=== PATIENT | female | born 1980 | race Caucasian/White ===

== ENCOUNTER → 2017-12-21 | Emergency (ER) | payer OTHER ==
[~2017-12-21] VITALS: Ht 157.5 cm; Wt 49.0 kg
[~2017-12-21] MED LIST: ANTIVERT25 M1 PO; PHENERGAN25 MG/1 ML
== END | disposition home or self-care (01) ==
LOC: ER 08:37
DX: R51 Headache (principal)

== ENCOUNTER → 2018-03-01 | Emergency (ER) | payer OTHER ==
[~2018-03-01] VITALS: Ht 157.5 cm; Wt 49.0 kg
== END | disposition home or self-care (01) ==
LOC: ER 08:44
DX: G43.909 Migraine, unspecified, not intractable, without status migrainosus (principal)

== ENCOUNTER 2018-07-28 11:12 | Emergency (ER) | payer OTHER ==
[~2018-07-28] VITALS: Ht 157.5 cm; Wt 47.6 kg
[2018-07-29] MEDS ORDERED: PEPCID40 MG PO (00:45)
[2018-07-29] MEDS ORDERED: ZOFRAN ODT4 MG PO (00:45)
== END 2018-07-29 00:53 ==
LOC: ER 11:12
DX: K52.9 Noninfective gastroenteritis and colitis, unspecified (principal)

== ENCOUNTER 2024-12-22 08:47 | Emergency (ER) | payer OTHER ==
[~2024-12-22] VITALS: Ht 157.5 cm; Wt 52.6 kg
[~2024-12-22 08:47] MED LIST changes: +PEPCID40 MG PO; +ZOFRAN ODT4 MG PO
[2024-12-22] MEDS ORDERED: COZAAR25 MG (09:00)
[2024-12-22 10:48] LABS: PH,URINE 7.5 (5.0-8.0); URINE APPEARANCE Clear; URINE BILIRRUBIN Negative (NEGATIVE); URINE BLOOD Moderate; URINE COLOR Yellow; URINE GLUCOSE Negative (NEGATIVE); URINE KETONE Negative (NEGATIVE); URINE LEUKOCYTE Negative; URINE NITRATE Negative; URINE PROTEIN Trace (NEGATIVE); URINE UROBILINOGEN 0.2 E.U./dl
[2024-12-22 10:49] LABS: URINE BACTERIA 51.4 uL (0.0-1933); URINE EPITHELIAL CELLS 18.5 uL (0.0-38.8); URINE WBC 31.8 uL (0.0-23.2)
[2024-12-22 10:53] LABS: HEMATOCRIT 38.9 % (36.0-45.00); MEAN CELL VOLUME 87.6 fL (80.00-100.00); MEAN CORPUSCULAR HEMOGLOBIN 29.3 pg (27.00-32.0); MEAN CORPUSCULAR HGB CONC 33.5 g/dl (32.0-36.0); PLATELET COUNT 223 K/uL (150-450); RED BLOOD COUNT 4.44 M/uL (4.00-6.00)
[2024-12-22 11:24] LABS: ALBUMIN 3.7 gm/dL (3.4-5.0); BILIRUBIN TOTAL 0.92 mg/dL (0.3-1.2); CREATININE SERUM 0.61 mg/dL (0.55-1.02); GFR 107.56; GLOBULINA 4.1 G/DL (2.4-3.5); POTASSIUM 3.66 mEq/L (3.5-5.1); TOTAL PROTEIN 7.8 gm/dL (6.4-8.2)
[2024-12-22] MEDS ORDERED: KETOROLAC TROMETHAMINE 30 MG VIAL ONE (14:41)
[2024-12-22] MEDS ORDERED: KETOROLAC TROMETHAMINE 30 MG VIAL IV ONE (14:45)
[2024-12-22] MEDS ORDERED: MORPHINE SULFATE 2 MG/ML CARTRIDGE IV ONE (16:45)
[2024-12-22] MEDS ORDERED: CIPROFLOXACIN IN 5 % DEXTROSE 400 MG/200 ML PIGGYBAG IV ONE ×2 (18:00→18:20)
[2024-12-22] MEDS ORDERED: DICYCLOMINE HCL 20 MG TABLET PO ONE (18:00)
[2024-12-22] MEDS ORDERED: METRONIDAZOLE/SODIUM CHLORIDE 500 MG/100 ML PIGGYBACK IV ONE ×2 (18:00→18:20)
[2024-12-22] MEDS ORDERED: 8 HOUR650 MG PO (18:12)
[2024-12-22] MEDS ORDERED: METRONIDAZOLE500 MG PO (18:12)
[2024-12-22] MEDS ORDERED: CIPRO500 MG PO (18:12)
[2024-12-22] MEDS ORDERED: DICY20TA PO (18:12)
[2024-12-22] MEDS ORDERED: DICYCLOMINE HCL 10 MG CAPSULE PO ONE (18:20)
== END 2024-12-22 22:04 | disposition home or self-care (01) ==
LOC: ER 08:50
PROVIDERS: Preventive Medicine Public Health & General Preventive Medicine
DX: R10.9 Unspecified abdominal pain (principal); Z88.8 Allergy status to other drugs, medicaments and biological substances; I10 Essential (primary) hypertension; K57.32 Diverticulitis of large intestine without perforation or abscess without bleeding

== ENCOUNTER 2025-02-27 11:34 | Emergency (ER) | payer OTHER ==
[~2025-02-27] VITALS: Ht 157.5 cm; Wt 57.6 kg
[~2025-02-27 11:34] MED LIST changes: +8 HOUR650 MG PO; +CIPRO500 MG PO; +COZAAR25 MG; +DICY20TA PO; +METRONIDAZOLE500 MG PO
[2025-02-27] MEDS ORDERED: LACTOBACILLUS ACIDOPHILUS 1 CAP CAP PO STA (14:07)
[2025-02-27] MEDS ORDERED: LACTOBACILLUS ACIDOPHILUS 1 CAP CAP PO ONE (14:26)
[2025-02-27 14:27] LABS: HEMATOCRIT 41.8 % (36.0-45.00); MEAN CELL VOLUME 87.8 fL (80.00-100.00); MEAN CORPUSCULAR HEMOGLOBIN 29.4 pg (27.00-32.0); MEAN CORPUSCULAR HGB CONC 33.5 g/dl (32.0-36.0); PLATELET COUNT 259 K/uL (150-450); RED BLOOD COUNT 4.76 M/uL (4.00-6.00); RED CELL DISTRIBUTION WIDTH 13.5 % (11.5-14.5)
[2025-02-27 14:46] LABS: CALCIUM 9.4 mg/dL (8.5-10.1); CREATININE SERUM 0.67 mg/dL (0.55-1.02); GFR 96.06; POTASSIUM 3.72 mEq/L (3.5-5.1)
== END 2025-02-27 18:44 | disposition home or self-care (01) ==
LOC: ER 11:35
PROVIDERS: General Practice
DX: R10.32 Left lower quadrant pain (principal); Z88.8 Allergy status to other drugs, medicaments and biological substances